=== PATIENT | female | born 1970 | race Caucasian/White ===

== ENCOUNTER → 2017-01-23 | Outpatient (CLI) | payer BC ==
--- NOTE | 2017-01-25 11:48 | MM ---
Reason for exam: screening (asymptomatic). Last mammogram was performed 4 years and 1 month ago. Physical Findings: A clinical breast exam by your physician is recommended on an annual basis and results should be correlated with mammographic findings. MG Screening Mammo w CAD Bilateral CC and MLO view(s) were taken. Prior study comparison: January 02, 2013, mammogram, performed at [facility]. December 12, 2007, mammogram, performed at [facility]. There are scattered fibroglandular densities. Nodular asymmetry with associated calcifications anterior lower inner quadrant in the right breast is new. ASSESSMENT: Incomplete: need additional imaging evaluation, BI-RAD 0 RECOMMENDATION: Special view mammogram and ultrasound of the right breast. [facility] will attempt to contact patient to return for supplemental views and ultrasound.
== END | disposition home or self-care (01) ==
LOC: RADMAMWWP 06:50
PROVIDERS: ATTEND Family Medicine
DX: Z12.31 Encounter for screening mammogram for malignant neoplasm of breast (principal)

== ENCOUNTER → 2017-02-09 | Outpatient (CLI) | payer BC ==
--- NOTE | 2017-02-09 10:58 | MM ---
Reason for exam: additional evaluation requested from abnormal screening. Last mammogram was performed 1 month ago. Physical Findings: Nurse did not find any significant physical abnormalities on exam. MG Work Up Mamm w CAD RT LM, ML with magnification, and CC with magnification view(s) were taken of the right breast. Prior study comparison: January 23, 2017, bilateral MG screening mammo w CAD. January 02, 2013, mammogram, performed at [facility]. December 12, 2007, mammogram, performed at [facility]. There are scattered fibroglandular densities. 3 o'clock anterior nodular asymmetry persists with associated fine microcalfications. These results were verbally communicated with the patient and result sheet given to the patient on 02/09/17. ASSESSMENT: Incomplete: need additional imaging evaluation, BI-RAD 0 RECOMMENDATION: Ultrasound of the right breast. (2-6 o'clock)
--- NOTE | 2017-02-09 11:00 | USB ---
Reason for exam: additional evaluation requested from abnormal screening. US Breast Workup Limited RT Right breast ultrasound demonstrates a 4 x 2 x 4mm oval, cystic lesion at 3 o'clock, benign. Uncertain if this corresponds to the mammographic finding. Given the calcifications, stereotactic biopsy recommended. These results were verbally communicated with the patient and result sheet given to the patient on 02/09/17. ASSESSMENT: Suspicious, BI-RAD 4 RECOMMENDATION: Surgical consultation and stereotactic core biopsy of the right breast. Called Dr. Obando with mammographic findings and has scheduled an appointment for the patient for 02/20/17 at 8:[address] Wasserman. Biopsy scheduled for 02/13/17 at 10:00. PRELIMINARY REPORT CALLED AND FAXED TO DR. WASSERMAN ON 02/09/17 AT 300/TP.
--- NOTE | 2017-02-09 11:47 | XR ---
EXAMINATION TYPE: XR spine complete AP and Lat DATE OF EXAM: 02/09/2017 11:17 AM COMPARISON: NONE HISTORY: Low back pain, history of surgery TECHNIQUE: 3 view lumbar spine FINDINGS: There 5 lumbar-type vertebral bodies. The pedicles are intact. Disc heights appear preserve d. Vertebral body heights are preserved. Alignment is normal. IMPRESSION: 1. Normal radiograph three-view lumbar spine 2. MRI is available if additional evaluation would be of benefit.
== END | disposition home or self-care (01) ==
LOC: RADMAMWWP 09:11
PROVIDERS: ATTEND Family Medicine
DX: R92.8 Other abnormal and inconclusive findings on diagnostic imaging of breast (principal); M54.5 Low back pain
CPT/HCPCS: 72082; 76642; G0206

== ENCOUNTER → 2017-02-13 | Day surgery (SDC) | payer BC ==
[~2017-02-13] MED LIST: BACITRACIN OINT 1 EACH PACKET TOPICAL ONE; LIDOCAINE 1% INJ 10MG/ML (20 ML MDV) ONE; SODIUM BICARB 4% 5 ML VIAL (0.48 MEQ/ML) ONE
--- NOTE | 2017-02-19 09:43 | MM ---
Stereotactic Mammotome core biopsy right breast. HISTORY: Right breast microcalcifications The calcification in question within the right breast were targeted by the undersigned. Procedure was performed by the undersigned. Informed consent was obtained and all of the patients questions were answered. The standard sterile technique was utilized and appropriate local anesthesia was obtained with 1% licocaine. Mammotome probe was advanced and multiple core samples were obtained and sent to pathology for interpretation. Microclip marker was deployed at the site of biopsy. Post procedural mammogram demonstrates appropriate deployment of radiopaque clip marker. The patient tolerated the procedure well and left the department in stable condition. Pathology results are pending. IMPRESSION: Successful stereotactic core biopsy right breast with pathology results pending. Pathology Results: Benign BREAST, RIGHT, CORE BIOPSY: FIBROCYSTIC CHANGES INCLUDING FIBROSIS, CYSTS, APOCRINE METAPLASIA AND CALCIUM OXALATE CRYSTALS. Recommendation Follow up mammogram of the right breast in 6 months. RULA
== END ==
LOC: RADMAMWWP 12:40
PROVIDERS: ATTEND Surgery
DX: N60.31 Fibrosclerosis of right breast (principal); R92.8 Other abnormal and inconclusive findings on diagnostic imaging of breast; N60.81 Other benign mammary dysplasias of right breast; N64.89 Other specified disorders of breast
CPT/HCPCS: 88305; 19081; A4648; J2001

== ENCOUNTER → 2017-03-15 | Outpatient (CLI) | payer BC ==
--- NOTE | 2017-03-15 22:23 | CONS ---
DATE OF CONSULTATION: 03/15/2017 CONSULTATION/NEW PATIENT EVALUATION HISTORY OF PRESENT ILLNESS/SLEEP-WAKE EVALUATION: 46-year-old lady who has been evaluated in the sleep center for obstructive sleep apnea-hypopnea syndrome and significant excessive daytime sleepiness. The patient had sleep study in 2002. At that time, she had been told about mild obstructive sleep apnea-hypopnea syndrome. After that she underwent lap band surgery and lost weight around 80 pounds and at that time her symptoms improved. Since that time, she increased and lost his weight and now she has more symptoms of tiredness and sleepiness than before. SLEEP SCHEDULE: Her sleep schedule is from 10:00 p.m. to 8:30 a.m. on working days and from around home 12 a.m. until 7:30 a.m. on days off. Some days, patient is working at night. Subsequently, she sleeps from 8:30 a.m. until 2:00 p.m. FALLING ASLEEP: No problem with falling asleep. She has a TV set in bedroom. DURING SLEEP: She has loud snoring and she wakes up from sleep with a dry mouth. DURING THE DAY/WAKE STATE: She feels significantly sleepy during the time when she does not asleep. Debord Sleepiness Scale increased to 15. She may take naps 1 to 2 times a day. She has one episode of nocturia during sleep time. Past medical history is positive for: 1. Hypertension. 2. Migraines. 3. Neck pain. PAST SURGICAL HISTORY: Back surgery, lap band surgery, gastric sleeve surgery. REVIEW OF SYSTEMS: Tiredness and sleepiness, hot flashes, irregular menstrual periods at the present time. No fevers. No double vision. No recent chest pain. No shortness of breath. No abdominal pain. No bleeding episodes. No blood in urine. No seizure episodes. SOCIAL HISTORY: Negative for smoking. Alcohol consumption, occasional. FAMILY HISTORY: Unavailable, patient was adopted. PHYSICAL EXAMINATION: GENERAL: A pleasant 46-year-old lady without distress. VITAL SIGNS: BP 114/78, HR 68, RR 16. Height 5 feet 2 inches. Weight 233. BMI 42.6. Neck 13-3/4 inches in circumference. Temp is 98.2. Oxygen saturation on room air 99%. HEENT: PERRLA, EOMI evaluation of oropharynx showed extremely low position of soft palate. NECK: Supple. No JVD. Thyroid is not palpable. LUNGS: Clear to percussion and to auscultation. Good air exchange. No wheezing or rhonchi. HEART: S1, S2 regular. No murmurs, gallops or rubs. ABDOMEN: Obese. Soft and nontender. Bowel sounds are present. No organomegaly appreciated. EXTREMITIES: No clubbing or cyanosis. 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 Cranial nerves 2 to 7 intact. There is no fasciculation or atrophy noted. No focal deficits observed. IMPRESSION: 1. Snoring, awakenings from sleep with dry mouth, low position of soft palate, significant excessive daytime sleepiness, obstructive sleep apnea-hypopnea syndrome. 2. Significant excessive daytime sleepiness. Debord Sleepiness Scale increased to 15 dictates necessity to include hypersomnia in differential diagnosis although patient does not have history of hypnagogic hallucinations, sleep paralysis or cataplexy. 3. Hypertension. 4. Migraines. 5. Perimenopausal with hot flashes, which may increase the risk for obstructive sleep apnea. 6. Status post back surgery. 7. Status post neck surgery. 8. Status post lap band surgery. 9. Status post gastric sleeve surgery. PLAN: 1. Polysomnography for evaluation of patient's breathing during sleep. 2. CPAP/BiPAP titration if sleep study confirms obstructive sleep apnea-hypopnea syndrome. 3. Preferable position during sleep on the side. 4. No driving if patient feels any sleepiness. Patient is aware of civil and criminal liability for unsafe driving. 5. I will see patient for follow-up visit to explain results of the testing and following plan. 6. Multiple sleep latency test if sleep study will be negative for obstructive sleep apnea-hypopnea syndrome. Thank you very much for referring this patient for consultation. Sincerely, Atif Vegas MD, PhD, FAASM. Diplomat of [place] [employer], Sleep Medicine Board by [place] [employer] [place] [employer] Adjunct Spanish Instructor of [facility] [place]
== END | disposition home or self-care (01) ==
LOC: SLEEP 16:32
PROVIDERS: ATTEND Internal Medicine
DX: G47.33 Obstructive sleep apnea (adult) (pediatric) (principal); I10 Essential (primary) hypertension; G43.109 Migraine with aura, not intractable, without status migrainosus; Z98.890 Other specified postprocedural states; Z98.84 Bariatric surgery status
CPT/HCPCS: 99211

== ENCOUNTER → 2017-06-21 | Outpatient (CLI) | payer BC ==
--- NOTE | 2017-06-22 12:04 | PN ---
PROGRESS NOTE Date of Service: DATE OF SERVICE: 06/21/2017 A 46-year-old lady had been followed in sleep center to discuss results of polysomnogram and following multiple sleep latency tests. 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 Sometimes cannot do some of her daytime activities secondary to sleepiness. Bethany sleepiness scale today is 13. I discussed results of the sleep studies with patient in details. Polysomnogram did not show any significantly respiratory abnormalities during the sleep. Total apnea- hypopnea index is 2.9 with lowest oxygen level 92.6% Multiple sleep latency test on the following day consisted from 4 naps. Patient fell asleep on all naps. Mean sleep latency at 4.8 minutes. Three sleep onset REM periods have been documented. MEDICATIONS: Propranolol. PHYSICAL EXAMINATION: During physical exam a 46-year-old lady without distress. VITAL SIGNS BP 136/90 , HR 76 , RR 16, height 5 feet 2 inches , weight 233 , oxygen saturation at room air 100%, temperature 97.8. HEENT PERRLA, EOMI. Evaluation of oropharynx showed low position of soft palate. NECK: Supple, no JVD. Thyroid is not palpable. LUNGS Clear to percussion and to auscultation. Good air exchange. No wheezing or rhonchi. HEART S1, S2 regular. No murmurs, gallops, or rubs. ABDOMEN Obese. EXTREMITIES No clubbing or cyanosis. 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 Cranial nerves 2 to 7 intact. There is no fasciculation or atrophy. noted. No focal deficits observed. IMPRESSION: 1. Narcolepsy without cataplexy. Multiple sleep latency test confirmed sleepiness. Three sleep onset REM periods have been documented. 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 3. Hypertension. 4. Migraines. 5. Perimenopausal. 6. Obesity. 7. Status post lap band surgery. 8. Status post gastric sleeve surgery. PLAN: 1. Treatment with daytime stimulants. I believe treatment with methylphenidate or amphetamines are contraindicated because patient has hypertension. I will start patient on treatment with modafinil with adjustments of the dose for correction of patient's sleepiness during the day. 2. Sleep hygiene with time in bed for at least 8 hours. 3. No driving if feeling any sleepiness. 4. Losing weight. 5. Preferable position during the sleep on the side. Thank you very much for allowing me to participate in management of your patient. Sincerely, Atif Vegas MD, PhD, FAASM Diplomat of [place] [employer] [place] [employer]mer Operator of [facility] [place] SAMANTHA / RUBIN: [id number] /
== END ==
LOC: SLEEP 15:10
PROVIDERS: ATTEND Internal Medicine
DX: G47.419 Narcolepsy without cataplexy (principal); I10 Essential (primary) hypertension; G43.909 Migraine, unspecified, not intractable, without status migrainosus; E66.9 Obesity, unspecified; Z98.890 Other specified postprocedural states; Z98.84 Bariatric surgery status; Z78.0 Asymptomatic menopausal state; Z79.899 Other long term (current) drug therapy

== ENCOUNTER → 2018-04-22 | Outpatient (CLI) | payer BC ==
--- NOTE | 2018-04-23 09:52 | MM ---
Reason for exam: screening (asymptomatic). Last mammogram was performed 1 year and 2 months ago. History: Benign MG stereo VAD BX RT of the right breast, February 13, 2017. Physical Findings: A clinical breast exam by your physician is recommended on an annual basis and results should be correlated with mammographic findings. MG 3D Screening Mammo W/Cad Bilateral CC and MLO view(s) were taken. Prior study comparison: February 09, 2017, right breast MG work up mamm w CAD RT. January 23, 2017, bilateral MG screening mammo w CAD. The breast tissue is heterogeneously dense. This may lower the sensitivity of mammography. Benign calcifications. Previous mammotome biopsy in the right breast. ASSESSMENT: Benign, BI-RAD 2 RECOMMENDATION: Routine screening mammogram of both breasts in 1 year.
== END | disposition home or self-care (01) ==
LOC: RADMAMWWP 11:21
PROVIDERS: ATTEND Family Medicine
DX: Z12.31 Encounter for screening mammogram for malignant neoplasm of breast (principal)
CPT/HCPCS: 77063; 77067

== ENCOUNTER → 2019-02-13 | Outpatient (CLI) | payer BC ==
--- NOTE | 2019-02-13 09:14 | CT ---
EXAMINATION TYPE: CT ankle LT wo con DATE OF EXAM: 02/13/2019 COMPARISON: None HISTORY: Lt ankle pain CT DLP: 175.2 mGycm Automated exposure control for dose reduction was used. TECHNIQUE: Contiguous axial CT slices were obtained of the left ankle. Coronal and sagittal reformats were obtained for review. 3-D images of the left ankle were obtained at a separate workstation in [facility] algorithm provided for review. FINDINGS: There is a well-corticated osseous fragment anterior to the distal tibia at the tibiotalar joint. Thi s measures 2 mm and may represent a small osteophyte or sequela of prior injury. There are some subchondral cystic changes of the distal tibia anteriorly and its midportion. Another very small osteophyte is seen of the lateral tibia on series 12 image 39. There are well-corticated osseous fragments distal to the medial malleolus within the region of the d eltoid ligament likely sequela prior injury. There is focal soft tissue swelling over the lateral and medial malleolus and to a lesser degree throughout the remainder of the foot. Some heterogenous atte nuation is seen within the deltoid ligament, which appears thickened. Fragments are also seen distal to the lateral malleolus and there is increased density in the region of the anterior talofibular lig ament with some surrounding fluid and small tibiotalar joint effusion. There is also the appearance o f thickening of the posterior tibialis. Although, the ligaments and tendons are limited on CT. No acu te fracture or malalignment is seen of the ankle. Very mild spurring is seen of the dorsal navicular at the talonavicular joint. Small Achilles and moderate plantar heel spurs are also noted. IMPRESSION: 1. OSSEOUS FRAGMENTS IN THE REGION OF THE DELTOID LIGAMENT AND ANTERIOR TALOFIBULAR LIGAMENT WITH ABN ORMAL SOFT TISSUE AND HETEROGENEITY IN THESE REGIONS SUGGESTING UNDERLYING DELTOID AND ANTERIOR TALOF IBULAR LIGAMENTOUS INJURY. 2. NO ACUTE FRACTURE OR MALALIGNMENT OF THE LEFT ANKLE. 3. SOFT TISSUE SWELLING OVER THE MEDIAL AND LATERAL MALLEOLUS AND TO A LESSER DEGREE OF THE VISUALIZE D LEFT FOOT SUBCUTANEOUS SOFT TISSUES. 4. THICKENING OF THE POSTERIOR TIBIALIS AND SMALL TALOTIBIAL JOINT EFFUSION. 5. SMALL ACHILLES AND MODERATE PLANTAR HEEL SPURS. 6. SMALL OSTEOPHYTE AT THE ANTERIOR TIBIOTALAR JOINT AND MILD SPURRING AT THE DORSAL TALONAVICULAR NICO INT.
== END | disposition home or self-care (01) ==
LOC: RADCTMAIN 07:41
PROVIDERS: ATTEND Orthopaedic Surgery
DX: M25.472 Effusion, left ankle (principal); M77.52 Other enthesopathy of left foot and ankle; M25.772 Osteophyte, left ankle

== ENCOUNTER → 2019-08-11 | Outpatient (CLI) | payer BC | END | disposition home or self-care (01) | LOC: LABWHC1 09:17 | PROVIDERS: ATTEND Orthopaedic Surgery | DX: E55.9 Vitamin D deficiency, unspecified (principal); E03.9 Hypothyroidism, unspecified; M25.572 Pain in left ankle and joints of left foot; M79.672 Pain in left foot; S90.02XD Contusion of left ankle, subsequent encounter; M25.472 Effusion, left ankle; S93.492D Sprain of other ligament of left ankle, subsequent encounter | CPT/HCPCS: 36415; 82306 ==

== ENCOUNTER → 2020-06-18 | Outpatient (CLI) | payer BC ==
--- NOTE | 2020-06-19 02:49 | MR ---
EXAMINATION TYPE: MR knee LT wo con DATE OF EXAM: 06/18/2020 COMPARISON: None HISTORY: L knee pain Multiplanar multiecho imaging of the left knee was performed with no contrast. Anterior and posterior cruciate ligaments are intact. There is moderate size knee joint effusion. The medial and lateral menisci appear intact. The collateral ligaments appear intact. There is mild incr eased signal within the medial meniscus without extension to the articular surface. There is some mil d spurring of the femoral and tibial condyles. The patella tendon is intact. I see no bony destructiv e process. There is small cartilaginous defect of the lateral femoral condyle which has cancellous no rmal bone near the articular surface. This is probably not of clinical significance. There is no evid ence of a fracture. I see no focal bone destruction. IMPRESSION: Hypertrophic spurring of the femoral and tibial condyles. No evidence of ligament or tendon tear. Minor degenerative signal changes within the menisci but no evidence of meniscal tear. Knee joint effusion. Small 6 x 3 mm cartilaginous defect of the articular surface of the lateral femo ral condyle is replaced with cancellous bone of doubtful significance.
== END | disposition home or self-care (01) ==
LOC: RADMRIMAIN 13:49
PROVIDERS: ATTEND Orthopaedic Surgery
DX: M17.12 Unilateral primary osteoarthritis, left knee (principal)

== ENCOUNTER → 2020-09-15 | Outpatient (CLI) | payer BC | END | disposition home or self-care (01) | LOC: LABWHC1 16:25 | PROVIDERS: ATTEND Family Medicine | DX: Z20.828 Contact with and (suspected) exposure to other viral communicable diseases (principal) | CPT/HCPCS: U0003; C9803 ==

== ENCOUNTER → 2020-09-29 | Outpatient (CLI) | payer BC ==
[2020-09-29 12:34] LABS: Basophils % (A) 0 %; Eosinophils # (A) 0.2 k/uL (0-0.7); Eosinophils % (A) 2 %; HCT 40.7 % (34.0-46.0); HGB 13.1 gm/dL (11.4-16.0); Lymphocytes # (A) 2.1 k/uL (1.0-4.8); Lymphocytes % (A) 20 %; MCH 29.7 pg (25.0-35.0); MCHC 32.1 g/dL (31.0-37.0); MCV 92.4 fL (80.0-100.0); Mean Platelet Volume 8.9; Monocytes # (A) 0.6 k/uL (0-1.0); Monocytes % (A) 6 %; Neutrophils # (A) 7.5 k/uL (1.3-7.7); Neutrophils % (A) 71 %; Platelet Count 305 k/uL (150-450); RBC 4.41 m/uL (3.80-5.40); RDW 12.5 % (11.5-15.5); WBC 10.6 k/uL (3.8-10.6)
[2020-09-29 12:54] LABS: Potassium 4.7 mmol/L (3.5-5.1)
== END | disposition home or self-care (01) ==
LOC: LABPAT 11:17
PROVIDERS: ATTEND Orthopaedic Surgery
DX: M23.92 Unspecified internal derangement of left knee (principal)
CPT/HCPCS: 36415; 80051; 85025

== ENCOUNTER 2020-09-30 12:51 | Day surgery (SDC) | payer BC ==
[2020-09-28 09:27] VITALS: BMI 39.4
--- NOTE | 2020-09-29 18:18 | HP ---
HISTORY AND PHYSICAL DATE OF SURGERY: 09/30/2020 Megan Dc is a 49-year-old patient seen with progressive left knee pain. We discussed options for treatment. She elected to proceed with arthroscopy. Consent was obtained. PAST MEDICAL HISTORY: Hypothyroidism, hypertension. PAST SURGICAL HISTORY: Lumbar spine surgery, cervical spine surgery, stomach surgery. DAILY MEDICATIONS: Levothyroxine, meloxicam, propranolol, lisinopril. ALLERGIES: NONE. SOCIAL HISTORY: She denies tobacco use. PHYSICAL EVALUATION OF THE LEFT KNEE: Her range of motion is plus 1 to 130, mild effusion. Tenderness medial joint line. Positive medial Mert's. Ligaments stable. Hip rotation without pain. Distal neurovascular exam intact. IMAGING: Radiographs of the left knee revealed moderate osteoarthritic changes. Left knee MRI revealed an abnormal signal through the medial meniscus, a moderate joint effusion. IMPRESSION: 1. Internal derangement of left knee with medial meniscal tear. 2. Hypertension. 3. Hypothyroidism. PLAN: Left knee arthroscopy with partial meniscectomy, partial synovectomy and debridement. MMODL / IJN: [id number] /
[~2020-09-30 12:51] MED LIST changes: -BACITRACIN OINT 1 EACH PACKET TOPICAL ONE; +DEXAMETHASONE SOD PHOSPHATE 4 MG/ML 1 ML VIAL IV ONE; +LACTATED RINGERS 1,000 ML IV SCH; +LIDOCAINE 1% (10MG/ML) FOR IV START INTRADERMA PRN; -LIDOCAINE 1% INJ 10MG/ML (20 ML MDV) ONE; +MIDAZOLAM 2 MG/2 ML VIAL IV PRN; +ONDANSETRON 4 MG/2 ML VIAL IVP ONE; -SODIUM BICARB 4% 5 ML VIAL (0.48 MEQ/ML) ONE
[2020-09-30] MEDS ORDERED: LACTATED RINGERS 1,000 ML IV ONE (13:08)
[2020-09-30] MEDS ORDERED: MIDAZOLAM 2 MG/2 ML VIAL ONE (13:46)
[2020-09-30] MEDS ORDERED: fentaNYL (PF) 50 MCG/ML 2 ML AMP ONE (13:46)
[2020-09-30] MEDS ORDERED: PROPOFOL 10 MG/ML 20 ML VIAL IV ONE (13:46)
[2020-09-30] MEDS ORDERED: LIDOCAINE 1% INJ 10MG/ML (20 ML MDV) ONE (13:46)
[2020-09-30] MEDS ORDERED: PHENYLEPHRINE 10 MG/ML VIAL ONE (13:46)
[2020-09-30] MEDS ORDERED: BUPIVACAINE (PF) 0.25% 30 ML VIAL SQ ONE (13:55)
--- NOTE | 2020-09-30 14:37 | P.OP ---
Date of Procedure: 09/30/20 Preoperative Diagnosis: Internal derangement left knee Postoperative Diagnosis: 1. Tear medial meniscus left knee 2. Grade 3 chondromalacia medial femoral condyle left knee 3. Grade 4 chondromalacia lateral femoral condyle left knee 4. Grade 4 chondromalacia patellofemoral joint left knee 5. Reactive synovitis medial, lateral and suprapatellar compartments left knee Procedure(s) Performed: 1. Arthroscopic partial medial meniscectomy left knee 2. Arthroscopic chondroplasty medial femoral condyle left knee 3. Arthroscopic chondroplasty lateral femoral condyle left knee 4. Arthroscopic chondroplasty patellofemoral joint left knee 5. Arthroscopic microfracture lateral femoral condyle left knee 6. Arthroscopic partial synovectomy medial, lateral and suprapatellar compartments left knee Anesthesia: WILA, local Surgeon: Wali Guzman Estimated Blood Loss (ml): 8 Pathology: none sent Condition: stable Disposition: PACU Indications for Procedure: 49-year-old patient seen with progressive left knee pain. After treatment options were discussed, she elected to proceed with arthroscopy. Operative Findings: See description of procedure Description of Procedure: Patient was taken to the operative suite. Patient underwent a general anesthetic by the department of anesthesia. Patient was given preoperative antibiotics. The left lower extremity was placed in a well-padded arthroscopic leg aguilar. The left leg was prepped and draped in the normal sterile orthopedic fashion. A lateral parapatellar and suprapatellar incision was made. Trochars were inserted. Arthroscopy was initiated. Suprapatellar pouch revealed diffuse thick reactive synovitis. The patellofemoral joint appeared to articulate congruently. There was grade 4 chondromalacia involving the patella and femoral sulcus with diffuse osteochondral tears present.. The scope was guided into the medial gutter. No loose bodies or plica were identified. The scope was then guided into the medial compartment. A medial parapatellar in cision was made. Trocar inserted followed by probe. Was a radial tear posterior horn medial meniscus. There were grade 3 chondromalacia changes of the medial femoral condyle with some osteochondral tears present. There was thick reactive synovitis anteriorly. I performed a partial medial meniscectomy cutting down to stable meniscal tissue. I performed a chondroplasty of the medial femoral condyle getting down to stable osteochondral tissue. I performed a partial synovectomy decompressing the reactive synovitis. The residual meniscus was stable. The residual osteochondral surface was stable. There was good decompression of the synovitis. Scope and probe were then guided into the intercondylar notch. Cruciates were identified, probed and found to be stable. The scope and probe were then guided into lateral compartment. There was areas of grade 4 chondromalacia lateral femoral condyle with some osteochondral tears present. The lateral meniscus was probed and found to be stable. There was some reactive synovitis anteriorly. I performed a chondroplasty lateral femoral condyle. I performed a partial synovectomy decompressing the reactive synovitis. There was good decompression of the synovitis. There was an area of grade 4 chondromalacia/exposed bone weightbearing surface along the lateral aspect of the lateral femoral condyle. Informed a microfracture to that area penetrating the bone with resultant bleeding at the microfracture site. The residual osteochondral surface was again probed and found to be stable. The scope was in guided back into the suprapatellar compartment. I introduced a motorized shaver into the suprapatellar compartment. I performed a chondroplasty of the patellofemoral joint pain down to stable osteochondral tissue. I performed a partial synovectomy decompressing the reactive synovitis. The shaver was removed. I took one more look on the entire knee, no residual debris. Instruments were now removed from the joint. The joint was infiltrated with .25% Marcaine. Steri-Strips were applied to the portal sites. Sterile dressings were applied. The patient was placed into a MICHELLE hose. No tourniquet was utilized. The patient was awakened, transferred to a bed and taken to recovery stable satisfactory condition.
[2020-09-30 14:43] VITALS: RESP 16; TEMP 98
[2020-09-30] MEDS: HYDROmorphone 0.5 MG/0.5 ML SYRINGE IVP PRN ×2 (14:55→15:02)
[2020-09-30] MEDS ORDERED: HYDROcodone/APAP 7.5-325MG 1 EACH TAB PO ONE (15:45)
[2020-09-30] MEDS ORDERED: HYDROcodone/APAP 7.5-325MG 1 EACH TAB ONE (15:47)
[2020-09-30 16:05] VITALS: BP 110/72; PULSE 59
== END 2020-09-30 16:30 | disposition home or self-care (01) ==
LOC: OR 12:51
PROVIDERS: ATTEND Orthopaedic Surgery
DX: M23.222 Derangement of posterior horn of medial meniscus due to old tear or injury, left knee (principal); M94.262 Chondromalacia, left knee; M65.862 Other synovitis and tenosynovitis, left lower leg; M22.42 Chondromalacia patellae, left knee; E03.9 Hypothyroidism, unspecified; I10 Essential (primary) hypertension; G47.419 Narcolepsy without cataplexy; Z98.890 Other specified postprocedural states; Z79.890 Hormone replacement therapy; Z79.1 Long term (current) use of non-steroidal anti-inflammatories (NSAID); Z79.899 Other long term (current) drug therapy; Z98.84 Bariatric surgery status; Z98.1 Arthrodesis status
CPT/HCPCS: 81025; 29881; 29879; J2250; J1100; J2370; J0690; J2405; J2001; J3010; J2704; J1170

== ENCOUNTER → 2020-12-03 | Outpatient (CLI) | payer BC ==
[2020-12-03 15:58] LABS: Basophils % (A) 0 %; Eosinophils # (A) 0.2 k/uL (0-0.7); Eosinophils % (A) 3 %; HCT 39.9 % (34.0-46.0); Lymphocytes # (A) 2.2 k/uL (1.0-4.8); Lymphocytes % (A) 25 %; MCH 30.4 pg (25.0-35.0); MCHC 32.6 g/dL (31.0-37.0); MCV 93.1 fL (80.0-100.0); Mean Platelet Volume 8.3; Monocytes # (A) 0.5 k/uL (0-1.0); Monocytes % (A) 6 %; Neutrophils # (A) 5.6 k/uL (1.3-7.7); Neutrophils % (A) 65 %; Platelet Count 283 k/uL (150-450); RBC 4.28 m/uL (3.80-5.40); RDW 12.7 % (11.5-15.5); WBC 8.6 k/uL (3.8-10.6)
== END | disposition home or self-care (01) ==
LOC: LABPAT 15:29
PROVIDERS: ATTEND Orthopaedic Surgery
DX: Z01.812 Encounter for preprocedural laboratory examination (principal); M17.11 Unilateral primary osteoarthritis, right knee
CPT/HCPCS: 36415; 80051; 85025; 87070; 93005

== ENCOUNTER → 2020-12-13 | Day surgery (SDC) | payer BC ==
[2020-12-09 14:18] VITALS: BMI 40.3
--- NOTE | 2020-12-12 13:12 | HP ---
HISTORY AND PHYSICAL REASON FOR ADMISSION: Surgery scheduled for 12/13/2020 HISTORY OF PRESENT ILLNESS: Megan Dc is a 50-year-old patient seen with symptomatic right knee osteoarthritis. Options for treatment were discussed with her. She elected to proceed with right total knee arthroplasty. Consent was obtained. PAST MEDICAL HISTORY: Hypertension, hypothyroidism. PAST SURGICAL HISTORY: Lumbar spine surgery, cervical spine surgery, abdominal surgery. MEDICATIONS: Levothyroxine, meloxicam, propranolol, lisinopril. ALLERGIES: ADHESIVE TAPE. SOCIAL HISTORY: She denies tobacco use. PHYSICAL EVALUATION OF THE RIGHT KNEE: Range of motion is -2/3-120. Mild effusion. Tenderness medial joint line. Crepitus medial and patellofemoral compartments with range of motion. There is pain with patellofemoral compression. Ligaments stable. Hip rotation without pain. Distal neurovascular exam intact. RADIOGRAPHS: Right knee radiographs reveal severe osteoarthritic changes. IMPRESSION: 1. Right knee osteoarthritis. 2. Hypertension. 3. Hypothyroidism. PLAN: Right total knee arthroplasty. Surgery scheduled for 12/13/2020. MMODL / IJN: [id number] /
[~2020-12-13] MED LIST changes: +ACETAMINOPHEN TAB 500 MG TAB PO PRN; +GLYCOPYRROLATE 0.2 MG/ML 2 ML VIAL ONE; +HYDROcodone/APAP 5-325MG 1 EACH TAB PO PRN; +HYDROcodone/APAP 7.5-325MG 1 EACH TAB PO ONE; +HYDROcodone/APAP 7.5-325MG 1 EACH TAB PO PRN; +HYDROmorphone 0.2 MG/1 ML SYRINGE IVP PRN; +HYDROmorphone 0.5 MG/0.5 ML SYRINGE IVP PRN; +HYDROmorphone 1 MG/ML 1 ML SYRINGE IVP PRN; +INSULIN NPH 300 UNIT/3 ML VIAL SQ ONE; +LACTATED RINGERS 1,000 ML IV ONE; +MELOXICAM 7.5 MG TAB PO PRN; +MIDAZOLAM 2 MG/2 ML VIAL IV ONE; -MIDAZOLAM 2 MG/2 ML VIAL IV PRN; +MIDAZOLAM 2 MG/2 ML VIAL ONE; +NALOXONE 0.4 MG/ML 1 ML VIAL IV PRN; +NEOSTIGMINE 1 MG/ML 10 ML VIAL ONE; +ONDANSETRON 4 MG/2 ML VIAL IVP PRN; +PROPOFOL 10 MG/ML 20 ML VIAL IV ONE; +ROCURONIUM 10 MG/ML (5 ML VIAL) IV ONE; +ROPIVACAINE 0.2%-NS ON-Q PUMP 1,090 MG, EMPTY PAIN BALL 1 EACH MISCELLANE PRN; +ROPIVACAINE/EPI/CLONIDINE/KET 50 ML SYRINGE MISCELLANE PRN; +SODIUM CHLORIDE 0.9% 100 ML BAG ONE; +TRANEXAMIC ACID 1,000 MG in SODIUM CHLORIDE 0.9% 100 ML IVPB PRN; +ceFAZolin 3,000 MG in SODIUM CHLORIDE 0.9% IRRIGATIO 3,000 ML IRRIGATION ONE; +ePHEDrine SULFATE/0.9% NACL/PF 50 MG/5 ML SYRINGE IV ONE; +fentaNYL (PF) 50 MCG/ML 2 ML AMP IV ONE; +fentaNYL (PF) 50 MCG/ML 2 ML AMP ONE
[2020-12-13] MEDS: LACTATED RINGERS 1,000 ML IV SCH ×2 (07:23→11:36)
[2020-12-13 07:25] LABS: Prothrombin Time 10.5 sec (9.0-12.0)
--- NOTE | 2020-12-13 09:19 | P.OP ---
Date of Procedure: 12/13/20 Preoperative Diagnosis: Right knee osteoarthritis Postoperative Diagnosis: Right knee osteoarthritis Procedure(s) Performed: Right total knee arthroplasty Implants: 1. Depuy attune size 5 narrow right cruciate retaining cemented femur 2. Depuy attune size 5 fixed bearing cemented tibial baseplate 3. Depuy attune size 5 fixed bearing cruciate retaining 8 mm polyethylene tibial insert 4. Depuy attune 35 mm all polyethylene cemented patella Anesthesia: GETA, regional (Adductor canal catheter), local Surgeon: Wali Guzman Geriatric Nurse #1: Anil Harvey Estimated Blood Loss (ml): 45 Pathology: other (Bone) Condition: stable Disposition: PACU Indications for Procedure: 50-year-old patient seen with symptomatic right knee osteoarthritis. After treatment options were discussed, she elected to proceed with total knee arthroplasty. Operative Findings: See description of procedure Description of Procedure: Patient was taken to the operative suite after having an adductor canal catheter placed by the department of anesthesia. Patient underwent a general anesthetic by the department of anesthesia. Patient was given preoperative IV intake antibiotics and TXA. A well-padded tourniquet was placed about the right lower extremity. The lower extremity was then prepped and draped in the normal sterile orthopedic fashion. The extremity was elevated, a tourniquet was insufflated to 300. A standard anterior incision was made sharply through skin. Dissection was taken down through the subcutaneous soft tissues down to the extensor mechanism. A medial arthrotomy was performed, patella was everted and knee was flexed. There was advanced osteoarthritis noted. I introduced my distal intramedullary femoral drill. I then introduced the distal femoral cutt ing jig. Nish GOLDSTEIN secured the cutting jig with 2 pins. I held retractors in position while Nish GOLDSTEIN performed the distal femoral resection through the guide area we now removed her distal femoral cutting guide. We now placed our 4-in-1 femoral cutting block and positioned and it was secured with 2 pins by Nish GOLDSTEIN while I held the block in position. The distal femoral finishing was now completed. A proximal tibial cutting guide was positioned. I held the guide in the appropriate position with both hands well Nish GOLDSTEIN inserted stabilizing pins into the guide. Proximal tibial cut was made. We now placed a trial femoral component into position, along with an appropriate size tibial tray and insert. We now took the knee through range of motion and had full extension good flexion and good overall soft tissue balance noted. The patella was everted and stabilized with 2 towel clips held by Nish GOLDSTEIN while I performed a flush with patellar quad tendon utilizing a fresh sawblade. We templated the patella, appropriate drill holes were made. An appropriate trial patella was positioned, knee was taken through full range of motion with the patella tracking very nicely. The trial patella was removed. Drill holes were made through the femoral component. All trial components were removed after marking off the appropriate rotation of the tibia. Retractors were now positioned along the proximal tibia. An appropriate keel punch was made with the appropriate size tibial guide by myself on Nish GOLDSTEIN assisted by holding retractors. At this point appropriate size implants were chosen and opened. The joint was irrigated copiously with pulse lavage mechanical irrigation. The posterior capsule was infiltrated with local analgesic. The wound was irrigated with pulse lavage mechanical irrigation. We mixed antibiotic methylmethacrylate. We placed the knee into flexion. We placed multiple retractors assisted by Nish GOLDSTEIN to expose the proximal tibia. Once the methyl methacrylate was ready, the tibial component was cemented into place removing any excess methylmethacrylate form by both myself and Nish GOLDSTEIN. The femoral component was cemented into place removing the removing any excess methylmethacrylate performed by both myself and Nish GOLDSTEIN. We then inserted the appropriate size polyethylene tibial insert. We made sure that it was locked into position. We took the knee into full extension, and then back in a flexion making sure we had removed any excess methylmethacrylate. The patellar component was then cemented down and secured with clamp. Excess methylmethacrylate removed. We kept the knee in full extension, patellar clamp in position until methylmethacrylate had hardened. Once it had hardened the patellar clamp was removed. The knee was taken through full range of motion. The patella tracked nicely. There was good soft tissue balancing. The tourniquet was now released. Additional hemostasis was achieved via electrocautery. A second gram of TXA was given. The wound again was irrigated with pulse lavage mechanical irrigation. The superficial soft tissues were infiltrated local analgesic. The extensor mechanism was repaired with #2 Ethibond. We checked the repair with range of motion and it was stable. The subcutaneous soft tissues were repaired with Vicryl in layers. The skin was approximated with pernio/Dermabond. Sterile dressings were applied followed by loose web roll and Gianfranco bandage. The patient was transferred to a bed, and taken to recovery in stable and satisfactory condition. Nish GOLDSTEIN assisted with this complex procedure.
--- NOTE | 2020-12-13 09:32 | P.ANPRN ---
Procedure Note - Anesthesia - Nerve Block Performed Right Adductor Canal Infusion Time Out Performed: Yes (703) Date of Procedure: 12/13/20 Procedure Start Time: 07:04 Procedure Stop Time: 07:11 Location of Patient: PreOp Indication: Acute Post-Operative Pain, Requested by Surgeon Specifically requested for management of pain by DrMervin: Wali Guzman Sedation Type: Sedate with meaningful contact maintained Preparation: Sterile Prep Position: Supine Catheter Depth at Skin (cm): 10 Catheter: Indwelling Needle Types: Pajunk Needle Gauge: 21 Ultrasound used to visualize needle placement: Yes Ultrasound used to observe medication spread: Yes Injectate: 0.5% Ropivacaine (see comment for volume) (20cc) Blood Aspirated: No Pain Paresthesia on Injection Noted: No Resistance on Injection: Normal Image Stored and Saved: Yes Events: Uneventful and Well Tolerated
[2020-12-13 09:47] VITALS: TEMP 97.8
--- NOTE | 2020-12-13 10:16 | XR ---
EXAMINATION TYPE: XR knee limited RT DATE OF EXAM: 12/13/2020 COMPARISON: NONE HISTORY: 50-year-old female evaluation for postoperative abnormality and alignment TECHNIQUE: 2 views FINDINGS: Anterior skin rex. Anterior soft tissue swelling with scattered soft tissue air as well as intra- articular air relating to recent operation. There is distal femoral and proximal tibial components of a total knee arthroplasty that appear well seated without periprosthetic fracture. Alignment grossly anatomic. IMPRESSION: Uncomplicated postoperative appearance right total knee arthroplasty.
[2020-12-13 11:49] VITALS: RESP 20
[2020-12-13 13:47] VITALS: BP 130/74; PULSE 72
== END | disposition home health service (06) ==
LOC: OR 05:54
PROVIDERS: ATTEND Orthopaedic Surgery
DX: M17.11 Unilateral primary osteoarthritis, right knee (principal); I10 Essential (primary) hypertension; E03.9 Hypothyroidism, unspecified; G47.419 Narcolepsy without cataplexy; K21.9 Gastro-esophageal reflux disease without esophagitis; Z91.09 Other allergy status, other than to drugs and biological substances; Z98.890 Other specified postprocedural states; Z79.890 Hormone replacement therapy; Z79.1 Long term (current) use of non-steroidal anti-inflammatories (NSAID); Z79.899 Other long term (current) drug therapy; Z86.69 Personal history of other diseases of the nervous system and sense organs; Z86.16 Personal history of COVID-19
CPT/HCPCS: 97110; 97161; 64448; 76942; 85610; 88300; 73560; 27447; C1776; C1713; J2250; J1100; J0690 ×2; J2405; J3010; J1170; J2795

== ENCOUNTER 2022-01-19 08:30 | Day surgery (SDC) | payer BC ==
[2022-01-18 10:53] VITALS: BMI 39.4
--- NOTE | 2022-01-19 07:41 | P.GSHP ---
History of Present Illness H&P Date: 01/19/22 CHIEF COMPLAINT: Colon screen HISTORY OF PRESENT ILLNESS: The patient is a 51-year-old female who presents for colon screen. Lower endoscopy was offered for further evaluation and management. PAST MEDICAL HISTORY: Please see list. PAST SURGICAL HISTORY: Please see list. MEDICATIONS: Please see list. ALLERGIES: Please see list. SOCIAL HISTORY: No illicit drug use FAMILY HISTORY: No reports of Crohn disease or ulcerative colitis. REVIEW OF ORGAN SYSTEMS: CONSTITUTIONAL: No reports of fevers or chills. PHYSICAL EXAM: VITAL SIGNS: Stable GENERAL: Well-developed pleasant in no acute distress. HEENT: No scleral icterus. Extraocular movements grossly intact. Moist buccal mucosa. NECK: Supple without lymphadenopathy. CHEST: Unlabored respirations. Equal bilateral excursions. CARDIOVASCULAR: Regular rate and rhythm. Distal 2+ pulses. ABDOMEN: Soft, nontender, nondistended. MUSCULOSKELETAL: No clubbing, cyanosis, or edema. ASSESSMENT: 1. Colon screen. PLAN: 1. Recommend proceeding with a lower endoscopy Past Medical History Past Medical History: GERD/Reflux, Hypertension, Osteoarthritis (OA) Additional Past Medical History / Comment(s): narcolepsy, migraine headaches History of Any Multi-Drug Resistant Organisms: None Reported Past Surgical History: Back Surgery, Bariatric Surgery, Joint Replacement, Orthopedic Surgery Additional Past Surgical History / Comment(s): gastric sleeve, lasik eye surg., cervical fusion,laminectomy, arthroscopic left knee surg, RT TKA Past Anesthesia/Blood Transfusion Reactions: No Reported Reaction Smoking Status: Never smoker - Past Family History Mother Family Medical History: Unable to Obtain Medications and Allergies Home Medications Medication Instructions Recorded Confirmed Type Lisinopril [Zestril] 10 mg PO DAILY 09/28/20 01/18/22 History Meloxicam [Mobic] 15 mg PO DAILY 09/28/20 01/18/22 History Propranolol HCl 80 mg PO HS 09/28/20 01/18/22 History Solriamfetol HCl [Sunosi] 150 mg PO DAILY 09/28/20 01/18/22 History Black Cohosh 540 mg PO DAILY 12/09/20 01/18/22 History Omeprazole [PriLOSEC] 20 mg PO HS 12/09/20 01/18/22 History Soy Isofla/Blk Cohosh/Mag Bark 155 mg PO DAILY 12/09/20 01/18/22 History [Estroven 155 mg Capsule] Levothyroxine Sodium [Synthroid] 88 mcg PO DAILY 12/13/20 01/18/22 History Allergies Allergy/AdvReac Type Severity Reaction Status Date / Time adhesive tape AdvReac heavy Verified 12/13/20 06:15 surgical tape caused burning,redness,blisters
[~2022-01-19 08:30] MED LIST changes: -ACETAMINOPHEN TAB 500 MG TAB PO PRN; -DEXAMETHASONE SOD PHOSPHATE 4 MG/ML 1 ML VIAL IV ONE; -GLYCOPYRROLATE 0.2 MG/ML 2 ML VIAL ONE; -HYDROcodone/APAP 5-325MG 1 EACH TAB PO PRN; -HYDROcodone/APAP 7.5-325MG 1 EACH TAB PO ONE; -HYDROcodone/APAP 7.5-325MG 1 EACH TAB PO PRN; -HYDROmorphone 0.2 MG/1 ML SYRINGE IVP PRN; -HYDROmorphone 0.5 MG/0.5 ML SYRINGE IVP PRN; -HYDROmorphone 1 MG/ML 1 ML SYRINGE IVP PRN; -INSULIN NPH 300 UNIT/3 ML VIAL SQ ONE; -LACTATED RINGERS 1,000 ML IV ONE; -LIDOCAINE 1% (10MG/ML) FOR IV START INTRADERMA PRN; -MELOXICAM 7.5 MG TAB PO PRN; -MIDAZOLAM 2 MG/2 ML VIAL IV ONE; -MIDAZOLAM 2 MG/2 ML VIAL ONE; -NALOXONE 0.4 MG/ML 1 ML VIAL IV PRN; -NEOSTIGMINE 1 MG/ML 10 ML VIAL ONE; -ONDANSETRON 4 MG/2 ML VIAL IVP ONE; -ONDANSETRON 4 MG/2 ML VIAL IVP PRN; -PROPOFOL 10 MG/ML 20 ML VIAL IV ONE; -ROCURONIUM 10 MG/ML (5 ML VIAL) IV ONE; -ROPIVACAINE 0.2%-NS ON-Q PUMP 1,090 MG, EMPTY PAIN BALL 1 EACH MISCELLANE PRN; -ROPIVACAINE/EPI/CLONIDINE/KET 50 ML SYRINGE MISCELLANE PRN; -SODIUM CHLORIDE 0.9% 100 ML BAG ONE; -TRANEXAMIC ACID 1,000 MG in SODIUM CHLORIDE 0.9% 100 ML IVPB PRN; -ceFAZolin 3,000 MG in SODIUM CHLORIDE 0.9% IRRIGATIO 3,000 ML IRRIGATION ONE; -ePHEDrine SULFATE/0.9% NACL/PF 50 MG/5 ML SYRINGE IV ONE; -fentaNYL (PF) 50 MCG/ML 2 ML AMP IV ONE; -fentaNYL (PF) 50 MCG/ML 2 ML AMP ONE
[2022-01-19 09:09] VITALS: TEMP 98.3
[2022-01-19] MEDS ORDERED: LIDOCAINE 1% INJ 10MG/ML (20 ML MDV) ONE (09:43)
[2022-01-19] MEDS ORDERED: PROPOFOL 10 MG/ML 20 ML VIAL IV ONE (09:43)
--- NOTE | 2022-01-19 10:03 | P.PCN ---
Date of Procedure: 01/19/22 Description of Procedure: PREOPERATIVE DIAGNOSIS: Colonoscopy screening History of adoption POSTOPERATIVE DIAGNOSIS: Colonoscopy screening. Internal and external hemorrhoids, grade 2 OPERATION: Colonoscopy to the cecum, ileocecal valve and appendiceal orifice. SURGEON: Nancy Del Cid MD. ANESTHESIA: MAC. INDICATIONS: The patient is a 51-year-old female who presents for colonoscopy screening. Benefits and risks were described and informed consent was obtained. DESCRIPTION OF PROCEDURE: The patient had undergone Sutab prep. The patient had been brought into the operating room and laid in the left lateral decubitus position. After adequate intravenous sedation, the rectum was examined with 2% lidocaine jelly. External hemorrhoids were encountered. The rectal tone was within normal limits. No lesions were palpated in the rectal vault. An Olympus colonoscope was advanced until the cecum, ileocecal valve and appendiceal orifice were clearly viewed. The prep was good. No scattered diverticulosis was encountered. No colonic polyps were found. No evidence of focal colitis was found. Retroflexion of the scope demonstrated grade 1 internal hemorrhoids without active bleeding or inflammation. The colon was desufflated. The patient had tolerated the procedure well. Withdrawal time was over 6 minutes. FINDINGS: Aronchick preparation quality scale 2 (1-5) Internal hemorrhoids, grade 1 External prolapsed hemorrhoids, grade 2 No arteriovenous malformations. No adenomatous polyps. No focal colitis. RECOMMENDATIONS: Lower endoscopy in 5 years, 2026 Plan - Discharge Summary Discharge Rx Participant: No New Discharge Prescriptions: Continue Lisinopril [Zestril] 10 mg PO DAILY Solriamfetol HCl [Sunosi] 150 mg PO DAILY Propranolol HCl 80 mg PO HS Meloxicam [Mobic] 15 mg PO DAILY Omeprazole [PriLOSEC] 20 mg PO HS Soy Isofla/Blk Cohosh/Mag Bark [Estroven 155 mg Capsule] 155 mg PO DAILY Black Cohosh 540 mg PO DAILY Levothyroxine Sodium [Synthroid] 88 mcg PO DAILY Discharge Medication List Lisinopril [Zestril] 10 mg PO DAILY 09/28/20 [History] Meloxicam [Mobic] 15 mg PO DAILY 09/28/20 [History] Propranolol HCl 80 mg PO HS 09/28/20 [History] Solriamfetol HCl [Sunosi] 150 mg PO DAILY 12/08/20 [History] Black Cohosh 540 mg PO DAILY 12/09/20 [History] Omeprazole [PriLOSEC] 20 mg PO HS 12/09/20 [History] Soy Isofla/Blk Cohosh/Mag Bark [Estroven 155 mg Capsule] 155 mg PO DAILY 12/09/20 [History] Levothyroxine Sodium [Synthroid] 88 mcg PO DAILY 12/13/20 [History] Follow up Appointment(s)/Referral(s): Nancy Del Cid MD [STAFF PHYSICIAN] - As Needed Patient Instructions/Handouts: *[facility] - (Anesthesia) Endoscopy Discharge Instructions Activity/Diet/Wound Care/Special Instructions: Repeat colonoscopy in 5 years, 2026 Discharge Disposition: HOME SELF-CARE
[2022-01-19 10:08] VITALS: RESP 16
[2022-01-19 10:34] VITALS: BP 157/82; PULSE 66
== END 2022-01-19 10:59 | disposition home or self-care (01) ==
LOC: ORWHC2ENDO 08:30
PROVIDERS: ATTEND Surgery Plastic and Reconstructive Surgery
DX: Z12.11 Encounter for screening for malignant neoplasm of colon (principal); K64.0 First degree hemorrhoids; K64.4 Residual hemorrhoidal skin tags; I10 Essential (primary) hypertension; K21.9 Gastro-esophageal reflux disease without esophagitis; M19.90 Unspecified osteoarthritis, unspecified site; G47.419 Narcolepsy without cataplexy; G43.909 Migraine, unspecified, not intractable, without status migrainosus; Z98.84 Bariatric surgery status; Z79.899 Other long term (current) drug therapy; Z79.890 Hormone replacement therapy; Z91.09 Other allergy status, other than to drugs and biological substances; Z98.890 Other specified postprocedural states; Z96.651 Presence of right artificial knee joint; Z98.1 Arthrodesis status
CPT/HCPCS: J2001; J2704; G0121

== ENCOUNTER → 2022-08-08 | Outpatient (CLI) | payer BC ==
--- NOTE | 2022-08-09 08:38 | MM ---
Reason for Exam: Screening (asymptomatic). Last mammogram was performed 4 year(s) and 3 month(s) ago. Patient History: Menarche at age 14. 02/13/2017, Benign Core Biopsy on the right side. Risk Values: Natasha 5 year model risk: 0.8%. NCI Lifetime model risk: 7.7%. Prior Study Comparison: 01/23/2017 Bilateral Screening Mammogram, [facility]. 02/09/2017 Right Diagnostic Mammogram, [facility]. 04/22/2018 Bilateral Screening Mammogram, [facility]. Tissue Density: There are scattered fibroglandular densities. Findings: Analyzed By CAD. There is no suspicious group of microcalcifications or new suspicious mass in either breast. Benign calcifications. Previous mammotome biopsy in the right breast. Overall Assessment: Benign, BI-RAD 2 Management: Screening Mammogram of both breasts in 1 year. A clinical breast exam by your physician is recommended on an annual basis and results should be correlated with mammographic findings. Electronically signed and approved by: Willie Gambino D.O.
--- NOTE | 2022-08-09 08:38 | MM ---
Reason for Exam: Screening (asymptomatic). Last mammogram was performed 4 year(s) and 3 month(s) ago. Patient History: Menarche at age 14. 02/13/2017, Benign Core Biopsy on the right side. Risk Values: Natasha 5 year model risk: 0.8%. NCI Lifetime model risk: 7.7%. Prior Study Comparison: 01/23/2017 Bilateral Screening Mammogram, [facility]. 02/09/2017 Right Diagnostic Mammogram, [facility]. 04/22/2018 Bilateral Screening Mammogram, [facility]. Tissue Density: There are scattered fibroglandular densities. Findings: Analyzed By CAD. There is no suspicious group of microcalcifications or new suspicious mass in either breast. Benign calcifications. Previous mammotome biopsy in the right breast. Overall Assessment: Benign, BI-RAD 2 Management: Screening Mammogram of both breasts in 1 year. A clinical breast exam by your physician is recommended on an annual basis and results should be correlated with mammographic findings. Electronically signed and approved by: Willie Gambino D.O.
== END | disposition home or self-care (01) ==
LOC: RADMAMWWP 07:36
PROVIDERS: ATTEND Obstetrics & Gynecology
DX: Z12.31 Encounter for screening mammogram for malignant neoplasm of breast (principal)
CPT/HCPCS: 77063; 77067

== ENCOUNTER → 2022-08-18 | Outpatient (CLI) | payer BC ==
--- NOTE | 2022-08-18 08:09 | MR ---
EXAMINATION TYPE: MR hip RT wo con DATE OF EXAM: 08/18/2022 COMPARISON: Outside pelvic and right hip x-ray March 31, 2022 HISTORY: Radiculopathy, right hip pain Standard multiplanar, multisequence MRI departmental protocol Multiplanar, multisequence images of the pelvis were acquired without contrast. Exam focuses on the r ight hip. FINDINGS: Fairly severe axial joint space loss in the right hip is redemonstrated and more prominent than the opposite left hip where there is more moderate joint space loss. There are small symmetric h ip joint effusions. There is asymmetric moderate right greater than left acetabular spurring also [place] ntified. There is diffuse increased T2 signal involving the superior two thirds of the right femoral head with more focal area of diminished T1 signal abutting the articular surface in the superior port ion of the femoral head articular surface. No bony fragmentation is seen. Some fraying of the labrum is thought present. Muscle bulk in the thighs is symmetric and within normal limits. There is no susp icious groin hernia or adenopathy seen bilaterally. Anteverted uterus is present. Urinary bladder appears within normal limits. No suspicious bowel dilat ation. No pelvic fluid collection. Pubic symphysis is intact. Sacroiliac joints are fairly symmetric. IMPRESSION: Asymmetric advanced degenerative change in the right hip joint as detailed above. Abnorma l edema and/or early AVN is present.
== END | disposition home or self-care (01) ==
LOC: RADMRIMAIN 07:06
PROVIDERS: ATTEND Physical Medicine & Rehabilitation
DX: M16.11 Unilateral primary osteoarthritis, right hip (principal)

== ENCOUNTER → 2022-10-13 | Outpatient (CLI) | payer BC ==
[2022-10-13 16:17] LABS: Partial Thromboplastin Time 26.5 sec (22.0-30.0)
[2022-10-13 20:08] LABS: Prothrombin Time 10.3 sec (9.0-12.0)
[2022-10-13 20:09] LABS: Appearance,Urine Clear (Clear); Bacteria,Urine Rare /hpf; Bilirubin,Urine Negative (Negative); Blood,Urine Negative (Negative); Color,Urine Yellow; Glucose,Urine (UA) Negative (Negative); Ketones,Urine Trace (Negative); Leukocyte Esterase,Urine Small (Negative); Mucus,Urine Rare /hpf; Nitrite,Urine Negative (Negative); PH, Urine 5.5 (5.0-8.0); Protein,Urine Negative (Negative); RBC,Urine 1 /hpf (0-5); Specific Gravity,Urine 1.025 (1.001-1.035); Squamous Epithelial Cell,Urine 4 /hpf (0-4); Urobilinogen,Urine <2.0 mg/dL (<2.0); WBC,Urine 3 /hpf (0-5)
[2022-10-13 22:28] LABS: HCT 39.2 % (37.2-46.3); HGB 12.9 g/dL (12.0-15.0); MCH 30.9 pg (27.0-32.0); MCHC 32.9 g/dL (32.0-37.0); Mean Platelet Volume 11.7 fL (9.5-12.2); NRBC Per 100 WBC 0 /100 WBCS (0.0-0.0); Platelet Count 302 X 10*3/uL (140-440); RBC 4.17 X 10*6/uL (4.10-5.20); WBC 7.88 X 10*3/uL (4.50-10.00)
[2022-10-13 22:58] LABS: African American GFR (CKD) 99.6 (60.0-200.0); Albumin 4.3 g/dL (3.8-4.9); Albumin/Globulin Ratio 1.72 (1.60-3.17); Anion Gap 9.7 mmol/L (10.00-18.00); BUN/Creat Ratio 26.13 Ratio (12.00-20.00); Blood Urea Nitrogen 20.9 mg/dL (9.0-27.0); Calcium 9.8 mg/dL (8.7-10.3); Carbon Dioxide 22.3 mmol/L (20.0-27.5); Globulin 2.5 g/dL (1.6-3.3); Potassium 4.6 mmol/L (3.5-5.5); Total Bilirubin 0.3 mg/dL (0.30-1.20); Total Protein 6.8 g/dL (6.2-8.2)
== END | disposition home or self-care (01) ==
LOC: LABPAT 13:29
PROVIDERS: ATTEND Orthopaedic Surgery
DX: Z01.818 Encounter for other preprocedural examination (principal); I49.3 Ventricular premature depolarization; M16.11 Unilateral primary osteoarthritis, right hip
CPT/HCPCS: 80053; 81001; 85027; 85610; 85730; 87070; 93005

== ENCOUNTER → 2022-10-24 | Day surgery (SDC) | payer BC ==
[2022-10-20 14:08] VITALS: BMI 39.4
[~2022-10-24] MED LIST changes: +ACETAMINOPHEN TAB 500 MG TAB PO PRN; +DEXAMETHASONE SOD PHOSPHATE 4 MG/ML 1 ML VIAL IV ONE; +DEXAMETHASONE SOD PHOSPHATE 4 MG/ML 1 ML VIAL ONE; +GABAPENTIN 300 MG CAP PO PRN; +GLYCOPYRROLATE 0.2 MG/ML 2 ML VIAL ONE; +HYDROcodone/APAP 7.5-325MG 1 EACH TAB PO PRN; +HYDROmorphone 0.5 MG/0.5 ML SYRINGE IVP PRN; +HYDROmorphone 1 MG/ML 1 ML SYRINGE IVP PRN; +LACTATED RINGERS 1,000 ML IV ONE; +LIDOCAINE 2% INJ 20 MG/ML (2 ML VIAL) ONE; +MAGNESIUM HYDROXIDE 2,400 MG/10 ML CUP PO PRN; +MELOXICAM 7.5 MG TAB PO PRN; +MIDAZOLAM 2 MG/2 ML VIAL IVP ONE; +NALOXONE 0.4 MG/ML 1 ML VIAL IV PRN; +NEOSTIGMINE 1 MG/ML 10 ML VIAL ONE; +ONDANSETRON 4 MG/2 ML VIAL IVP ONE; +ONDANSETRON 4 MG/2 ML VIAL IVP PRN; +PHENYLEPHRINE-0.9% NACL SYG 1,000 MCG/10 ML SYRINGE ONE; +PROPOFOL 10 MG/ML 20 ML VIAL IV ONE; +ROCURONIUM 10 MG/ML (5 ML VIAL) IV ONE; +ROPIVACAINE 5 MG/ML 30 ML VIAL MISCELLANE ONE; +ROPIVACAINE 5 MG/ML 30 ML VIAL ONE; +SENNOSIDES-DOCUSATE SODIUM 1 EACH TAB PO SCH; +SODIUM CHLORIDE 0.9% 1,000 ML IV SCH; +SUCCINYLCHOLINE CHLORIDE 200 MG/10 ML VIAL IV ONE; +TRANEXAMIC ACID IN NACL,ISO-OS 1,000 MG in SALINE 1 100ML.BAG IVPB PRN; +TRANEXAMIC ACID IN NACL,ISO-OS 1,000 MG/100 ML BAG ONE; +ceFAZolin 1,000 MG in SODIUM CHLORIDE 0.9% 1,000 ML IRRIGATION ONE; +ePHEDrine 50 MG/ML 1 ML VIAL ONE; +fentaNYL (PF) 50 MCG/ML 2 ML AMP ONE
--- NOTE | 2022-10-24 08:19 | P.OP ---
Date of Procedure: 10/24/22 Preoperative Diagnosis: Severe osteoarthritis right hip Postoperative Diagnosis: Severe osteoarthritis right hip Procedure(s) Performed: Right total hip arthroplasty with a direct anterior approach Implants: Brooks [employer] Nephew Polarstem standard size 3 with a collar [employer] Nephew R3, 3 hole hemispherical acetabular shell, 52 mm [employer] Nephew Reflection 6.5 mm cancellus screw, 20 mm, 25 mm [employer] Nephew R3, XLPE 20 acetabular liner [employer] Nephew Oxinium femoral head 36 m, +0 All components were press-fit. The articulation is Oxinium on polyethylene. Anesthesia: GETA Surgeon: Giacomo Alex Land Surveyor Manager #1: Deysi Morgan Estimated Blood Loss (ml): 500 Pathology: other (Femoral head) Condition: stable Disposition: PACU Indications for Procedure: After failure of conservative treatment we discussed the surgical and nonsurgical treatment options at length. Patient wishes to proceed with a total hip arthroplasty with a direct anterior approach. Complications specific to this procedure were discussed at length, including but not limited to infection, leg length discrepancy, dislocation, nerve injury, and fracture. Covid-19 was also discussed at length with the patient, and they are aware of the current policies and procedures. The patient was given the option of delaying surgery, but they elect to proceed knowing these risks. Patient is aware of all these complications and informed consent was obtained Operative Findings: The operative findings are consistent with severe osteoarthritis of the right hip Description of Procedure: Patient was seen and evaluated in the preoperative area and the consent was reviewed. The operative site was marked with a skin marker. The patient was then brought to the operating room and given preoperative antibiotics intravenously. 1 g of Tranexamic acid was also given intravenously. A general anesthetic was administered by the anesthesia department. The patient was then placed on the [place] table with the bony prominences well-padded. The hip area was then prepped with a ChloraPrep solution and draped in the usual sterile fashion. A universal timeout was then performed, which confirmed the patient's name, surgical site, ALLERGIES, and procedure being performed on the consent. Next the incision site was located at 1 cm distal and 2 cm lateral to the anterior superior iliac spine. The skin and subcutaneous tissues were sharply incised. Incision was carefully dissected down to the fascia overlying the tensor fascia diane muscle. This fascia was then incised in line with the incision. Care was taken to stay laterally in order to avoid injuring the lateral femoral cutaneous nerve. Next, using blunt finger dissection, the tensor fascia diane muscle was dissected off its investing fascia. The muscle was then carefully retracted laterally with a cobra retractor over the lateral neck of the femur. Next, the circumflex vessels were identified and cauterized using the AquaMantis device. The anterior hip capsule was then exposed. The capsule was then opened and an inverted T fashion. Cobra retractors were then placed intracapsularly. The retractors were maintained intracapsular throughout the procedure. The proximal femur was then visualized. Fluoroscopic x-rays were then taken in order to evaluate the preoperative leg lengths. A small amount of traction was placed on the leg. The femoral neck was then osteotomized at the appropriate level above the lesser trochanter. A small wedge of bone was then removed from the remaining femoral head. Next, using a corkscrew the femoral head was removed from the acetabulum. On gross visual inspection, the femoral head had complete loss of articular cartilage and multiple periarticular osteophytes. The femoral head was then measured. Attention was then turned to the acetabulum. The acetabulum was exposed and any remaining labrum was excised. Sequential reaming of the acetabulum was performed using fluoroscopic guidance until there was a good bed of bleeding cancellus bone. When the appropriate size was reached, a trial was then placed. The position and fit of the trial was checked with fluoroscopy. The trial was then removed. Then, using fluoroscopic guidance, the final implant was impacted at 20 of anteversion and 40 of abduction, and fully seated in the acetabulum. 2 screws were then placed in the acetabulum. Again fluoroscopy was used to check position of the screws. Next, the liner was then impacted, with a 20 elevated liner located in the anterior superior quadrant. Component locking was confirmed. Attention was then directed to the femur. With the aid of the [place] table, the femur was externally rotated to approximately 130, extended, and adducted under the opposite leg. A side hook was then placed under the proximal femur, and the side hook elevator was used to elevate the proximal femur while releasing the capsule. Retractors were then placed. A capsular release was performed, as well as a release of the conjoined tendon, which afforded excellent visualization of the proximal femur. Next, a box osteotome was used to lateralize the proximal femur. A ferry hand was then used to locate the femoral canal. Sequential broaching was then performed with appropriate size which afforded excellent fixation in the proximal femur. A trial was then placed with appropriate head and neck, and the hip was gently reduced with the aid of the [place] table. Fluoroscopy was then used to check position of the components, as well as to evaluate the leg lengths and offset. The leg lengths and offset were measured as closely as possible to ensure stability of the hip. The hip was then gently dislocated and the trials were then removed. Final implants were then impacted and the hip was again reduced. Final fluoroscopic x-rays confirmed that the components were in anatomic position. The leg lengths and offset were measured and were found to coincide with the trial measurements. The hip was also taken through range of motion, and found to be stable. The hip was then copiously irrigated with antibiotic solution with pulsatile lavage. The hip was then irrigated with Irrisept solution. The soft tissues were then injected with a ropivacaine solution. A second dose of 1 g of Tranexamic acid was also given intravenously. The fascia was then closed with 2-0 strata fix suture. The subcutaneous tissue was closed with 3-0 Vicryl. The subcuticular tissue was closed with 3-0 strata fix suture. The skin was then closed with Exofin skin glue. After the glue and dried, and Optifoam silver impregnated dressing was applied. The patient was then transferred to the recovery room in stable condition. The legal executive assistant ANGELITA James was required due to the complexity of surgery, and the need for skilled surgical first assistant for positioning, draping, exposure, retraction, and closure of the wound.
--- NOTE | 2022-10-24 08:40 | FL ---
EXAMINATION TYPE: FL guidance operating room, XR Hip Limited RT DATE OF EXAM: 10/24/2022 CLINICAL HISTORY: Right hip pain and osteoarthritis. TECHNIQUE: Fluoroscopy. Limited intraoperative views right hip. COMPARISON: MRI right hip August 18, 2022. FINDINGS: Fluoroscopic guidance was provided during hip replacement procedure performed by Dr. Rohini singleton. A total of 37 seconds of fluoroscopic time was utilized during the procedure and 3 spot images was acquired. Intraoperative images acquired show metallic hardware from total right hip arthroplasty satisfactory in position on frontal projection. IMPRESSION: As Above.
[2022-10-24 09:01] VITALS: TEMP 97.4
[2022-10-24] MEDS: HYDROmorphone 0.5 MG/0.5 ML SYRINGE IVP PRN ×3 (09:04→10:00)
[2022-10-24 09:08] VITALS: RESP 16
--- NOTE | 2022-10-24 09:28 | XR ---
EXAMINATION TYPE: XR Hip Limited RT DATE OF EXAM: 10/24/2022 COMPARISON: NONE HISTORY: Post TECHNIQUE: One view submitted. FINDINGS: There is postsurgical change in near anatomic alignment. There is soft tissue edema and emphysema. IMPRESSION: 1. Postoperative change. Appears in near-anatomic alignment.
--- NOTE | 2022-10-24 11:42 | P.ANPRN ---
Procedure Note - Anesthesia - Nerve Block Performed Right Mark Single Time Out Performed: Yes Date of Procedure: 10/24/22 Procedure Start Time: 06:43 Procedure Stop Time: 06:48 Location of Patient: PreOp Indication: Acute Post-Operative Pain, Requested by Surgeon Sedation Type: Sedate with meaningful contact maintained Preparation: Sterile Prep Position: Supine Needle Types: Pajunk Needle Gauge: 21 Ultrasound used to visualize needle placement: Yes Ultrasound used to observe medication spread: Yes Blood Aspirated: No Pain Paresthesia on Injection Noted: No Resistance on Injection: Normal Image Stored and Saved: Yes Events: Uneventful and Well Tolerated (ROPI .5% 25 CC PLUS DEXAMETHASONE 4MG)
[2022-10-24 12:47] VITALS: BP 101/58; PULSE 69
== END | disposition home health service (06) ==
LOC: OR 05:46
PROVIDERS: ATTEND Orthopaedic Surgery
DX: M16.11 Unilateral primary osteoarthritis, right hip (principal); G89.18 Other acute postprocedural pain; M48.00 Spinal stenosis, site unspecified; E03.9 Hypothyroidism, unspecified; K21.9 Gastro-esophageal reflux disease without esophagitis; Z96.659 Presence of unspecified artificial knee joint; Z79.890 Hormone replacement therapy; Z79.899 Other long term (current) drug therapy
CPT/HCPCS: 27130; 97530; 97161; 64447; 76942; 86900; 86901; 86850; 88300; 73501; C1776; J2250; J0330; J1100; J2710; J0690 ×2; J2405; J3010; J2795; J2370; J2704; J1170; J2001

== ENCOUNTER → 2023-08-20 | Outpatient (CLI) | payer BC ==
--- NOTE | 2023-08-21 12:25 | MM ---
Reason for Exam: Screening (asymptomatic). Last screening mammogram was performed 12 month(s) ago. Patient History: Menarche at age 14. 02/13/2017, Benign Core Biopsy on the right side. Risk Values: Natasha 5 year model risk: 0.9%. NCI Lifetime model risk: 7.5%. Prior Study Comparison: 02/09/2017 Right Diagnostic Mammogram, [facility]. 04/22/2018 Bilateral Screening Mammogram, [facility]. 08/08/2022 Bilateral MG 3D screening mammo w/cad, [facility]. Tissue Density: There are scattered fibroglandular densities. Findings: Analyzed By CAD. Pattern appears stable. Focal asymmetries are within the bilateral breasts on the left craniocaudal right mediolateral oblique view, stable. Core marker is within the right breast. No suspicious groups of microcalcifications, spiculated or lobular masses, architectural distortion or other secondary signs of malignancy are mammographically apparent. Overall Assessment: Benign, BI-RAD 2 Management: Screening Mammogram of both breasts in 1 year. A negative mammogram report should not preclude additional follow up of suspicious palpable abnormalities. Patient should continue monthly self breast exam. A clinical breast exam by your physician is recommended on an annual basis and results should be correlated with mammographic findings. Electronically signed and approved by: Julien Mathias D.O. Radiologis
== END | disposition home or self-care (01) ==
LOC: RADMAMWWP 11:15
PROVIDERS: ATTEND Family Medicine
DX: Z12.31 Encounter for screening mammogram for malignant neoplasm of breast (principal)
CPT/HCPCS: 77063; 77067

== ENCOUNTER → 2025-03-03 | Outpatient (CLI) | payer BC ==
--- NOTE | 2025-03-03 11:59 | MM ---
Reason for Exam: Screening (asymptomatic). Last mammogram was performed 1 year(s) and 7 month(s) ago. Patient History: Menarche at age 14. 02/13/2017, Benign Core Biopsy on the right side. Risk Values: Natasha 5 year model risk: 0.9%. NCI Lifetime model risk: 7.3%. Prior Study Comparison: 04/22/2018 Bilateral Screening Mammogram, [facility]. 08/08/2022 Bilateral MG 3D screening mammo w/cad, [facility]. 08/20/2023 Bilateral MG 3D screening mammo w/cad, [facility]. Tissue Density: There are scattered areas of fibroglandular density. Findings: Analyzed By CAD. Mammotome biopsy clip in the right breast is redemonstrated. There is no suspicious group of microcalcifications or new suspicious mass in either breast. Overall Assessment: Benign, BI-RAD 2 Management: Screening Mammogram of both breasts in 1 year. . Patient should continue monthly self-breast exams. A clinical breast exam by your physician is recommended on an annual basis. This exam should not preclude additional follow-up of suspicious palpable abnormalities. Note on Natasha scores and lifetime risk: 1. A Natasha score greater than 3% is considered moderate risk. If this is the case, consider specialist referral to assess eligibility for a risk reducing agent. 2. If overall lifetime risk for the development of breast cancer is 20% or higher, the patient may qualify for future screening with alternating mammogram and breast MRI. [facility], , 03/03/2025 11:55 AM. Electronically signed and approved by: Girish Denis M.D.
== END | disposition home or self-care (01) ==
LOC: RADMAMWWP 10:39
PROVIDERS: ATTEND Family Medicine
DX: Z12.31 Encounter for screening mammogram for malignant neoplasm of breast (principal); R92.323 Mammographic fibroglandular density, bilateral breasts
CPT/HCPCS: 77063; 77067